=== PATIENT | female | born 1955 | race Caucasian/White ===

== ENCOUNTER → 2016-04-27 | Outpatient (CLI) | payer OTHER ==
[~2016-04-27] MED LIST: ACET-1256 PO; ASPI81TA25 PO; ATOR-22 PO; ATV1 PO; DOCU-94 PO; EYE DROP OP; FRS/40 PO; GLIM4TAB2 PO; HYDR-5688 PO; IPRA1AER2 INH; NEBULIZER; POLY1SOL6 OP; PRED20TA2 PO; PRLSR20 PO; [UNRECOGNIZED DRUG - REMARK]
[2016-04-27 09:41] LABS: ALB/GLOB RATIO 0.7 (0.9-2); ALKALINE PHOSPHATASE 85 U/L (45-117); ALT/SGPT 33 U/L (12-78); AST/SGOT 17 U/L (15-37); BLOOD UREA NITROGEN 17 mg/dl (7-18); BUN/CREATININE RATIO 20.9 (10-20); CALCIUM 9.1 mg/dl (8.5-10.1); CARBON DIOXIDE 40 mmol/L (21-32); CHLORIDE 96 mmol/L (98-107); CHOLESTEROL 140 mg/dl (0-200); GLUCOSE 169 mg/dl (70-99); HDL CHOLESTEROL 47 mg/dl; LDL CHOLESTEROL CALCULATED 65 mg/dl; POTASSIUM 4.3 mmol/L (3.5-5.1); SODIUM 143 mmol/L (136-145); TRIGLYCERIDES 138 mg/dl (0-150); VERY LOW DENSITY LIPOPROT CALC 28 mg/dl
[2016-04-27 09:46] LABS: ESTIMATED AVERAGE GLUCOSE 206 mg/dl; HA1C FLAG Normal (Normal)
== END ==
LOC: C.LABCC 08:12
PROVIDERS: ATTEND Internal Medicine
DX: E13.22 Other specified diabetes mellitus with diabetic chronic kidney disease (principal); E78.5 Hyperlipidemia, unspecified

== ENCOUNTER → 2016-07-23 | Outpatient (CLI) | payer OTHER ==
[2016-07-23 08:54] LABS: BLOOD UREA NITROGEN 14 mg/dl (7-18); BUN/CREATININE RATIO 22.7 (10-20); CALCIUM 8.5 mg/dl (8.5-10.1); CARBON DIOXIDE 44 mmol/L (21-32); CHLORIDE 97 mmol/L (98-107); CREATININE 0.63 mg/dl (0.60-1.20); GLUCOSE 83 mg/dl (70-99); POTASSIUM 4.1 mmol/L (3.5-5.1); SODIUM 143 mmol/L (136-145)
[2016-07-23 09:18] LABS: ESTIMATED AVERAGE GLUCOSE 169 mg/dl; HA1C FLAG Normal (Normal)
== END ==
LOC: C.LABCC 08:13
PROVIDERS: ATTEND Internal Medicine
DX: E13.22 Other specified diabetes mellitus with diabetic chronic kidney disease (principal); D63.1 Anemia in chronic kidney disease; N18.9 Chronic kidney disease, unspecified

== ENCOUNTER → 2016-08-19 | Outpatient (CLI) | payer OTHER ==
[2016-08-19 09:14] LABS: ALB/GLOB RATIO 0.7 (0.9-2); ALKALINE PHOSPHATASE 74 U/L (45-117); ALT/SGPT 19 U/L (12-78); AST/SGOT 12 U/L (15-37); BLOOD UREA NITROGEN 14 mg/dl (7-18); BUN/CREATININE RATIO 20.7 (10-20); CALCIUM 9.1 mg/dl (8.5-10.1); CARBON DIOXIDE 45 mmol/L (21-32); CHLORIDE 97 mmol/L (98-107); CREATININE 0.68 mg/dl (0.60-1.20); GLUCOSE 125 mg/dl (70-99); POTASSIUM 4.3 mmol/L (3.5-5.1); PREALBUMIN 19.6 mg/dl (20-40); SODIUM 142 mmol/L (136-145)
== END ==
LOC: C.LABCC 08:17
PROVIDERS: ATTEND Internal Medicine
DX: R60.0 Localized edema (principal)

== ENCOUNTER → 2016-08-25 | Outpatient (CLI) | payer OTHER ==
[2016-08-25 09:05] LABS: BLOOD UREA NITROGEN 21 mg/dl (7-18); BUN/CREATININE RATIO 25.6 (10-20); CHLORIDE 97 mmol/L (98-107); CREATININE 0.81 mg/dl (0.60-1.20); GLUCOSE 112 mg/dl (70-99); POTASSIUM 4.3 mmol/L (3.5-5.1); SODIUM 144 mmol/L (136-145)
[2016-08-25 09:27] LABS: CALCIUM 8.6 mg/dl (8.5-10.1); CARBON DIOXIDE 47 mmol/L (21-32)
== END ==
LOC: C.LABCC 07:59
PROVIDERS: ATTEND Internal Medicine
DX: R60.0 Localized edema (principal)

== ENCOUNTER → 2016-12-28 | Outpatient (CLI) | payer OTHER ==
[2016-12-28 09:15] LABS: BLOOD UREA NITROGEN 19 mg/dl (7-18); BUN/CREATININE RATIO 25.1 (10-20); CALCIUM 9.5 mg/dl (8.5-10.1); CARBON DIOXIDE 43 mmol/L (21-32); CHLORIDE 94 mmol/L (98-107); CREATININE 0.76 mg/dl (0.60-1.20); GLUCOSE 137 mg/dl (70-99); SODIUM 141 mmol/L (136-145)
== END | disposition home or self-care (01) ==
LOC: C.LABCC 08:40
PROVIDERS: ATTEND Internal Medicine
DX: R60.9 Edema, unspecified (principal)

== ENCOUNTER → 2017-01-04 | Outpatient (CLI) | payer OTHER ==
[2017-01-04 08:59] LABS: BLOOD UREA NITROGEN 15 mg/dl (7-18); BUN/CREATININE RATIO 22.3 (10-20); CARBON DIOXIDE 45 mmol/L (21-32); CHLORIDE 97 mmol/L (98-107); CREATININE 0.65 mg/dl (0.60-1.20); GLUCOSE 104 mg/dl (70-99); SODIUM 142 mmol/L (136-145)
== END ==
LOC: C.LABCC 08:19
PROVIDERS: ATTEND Internal Medicine
DX: R60.0 Localized edema (principal)

== ENCOUNTER → 2017-01-26 | Outpatient (CLI) | payer OTHER ==
[2017-01-26 08:06] LABS: BASO % 0.1 %; BASO ABS # 0.01 K/uL (0-0.2); COMPLETE YES; EOS % 2.7 %; HEMATOCRIT 35.4 % (37-47); IG% 0.4 %; LYMPH % 24.4 %; LYMPH ABS # 1.89 K/uL (1.2-3.4); MEAN CELL VOLUME 97.3 fL (80-100); MEAN CORPUSCULAR HEMOGLOBIN 28.3 pg (25-34); MEAN CORPUSCULAR HGB CONC 29.1 g/dl (32-36); MEAN PLATELET VOLUME 10.5 fL (7.4-10.4); MONO % 8.6 %; NEUT % 63.8 %; PLATELET COUNT 222 K/uL (130-400); RED BLOOD COUNT 3.64 M/uL (4.2-5.4); WHITE BLOOD COUNT 7.76 K/uL (4.8-10.8)
[2017-01-26 10:09] LABS: ESTIMATED AVERAGE GLUCOSE 160 mg/dl; HA1C FLAG Normal (Normal)
== END ==
LOC: C.LABCC 07:50
PROVIDERS: ATTEND Internal Medicine
DX: E11.9 Type 2 diabetes mellitus without complications (principal); D64.9 Anemia, unspecified

== ENCOUNTER → 2017-03-26 | Outpatient (CLI) | payer OTHER | LOC: C.LABCC 07:33 | PROVIDERS: ATTEND Internal Medicine | DX: E03.9 Hypothyroidism, unspecified (principal) ==

== ENCOUNTER → 2017-04-16 | Outpatient (CLI) | payer OTHER | LOC: C.LABCC 08:07 | PROVIDERS: ATTEND Internal Medicine | DX: R10.9 Unspecified abdominal pain (principal) ==

== ENCOUNTER → 2017-05-04 | Outpatient (CLI) | payer OTHER | LOC: C.LABCC 14:00 | PROVIDERS: ATTEND Internal Medicine | DX: R31.9 Hematuria, unspecified (principal) ==

== ENCOUNTER → 2017-05-05 | Outpatient (CLI) | payer OTHER ==
[2017-05-05 10:03] LABS: BASO % 0.1 %; BASO ABS # 0.01 K/uL (0-0.2); EOS % 2.1 %; EOS ABS # 0.18 K/uL (0-0.5); HEMATOCRIT 35.4 % (37-47); HEMOGLOBIN 10.4 g/dL (12.0-16.0); IG# 0.02 K/uL (0.00-0.02); LYMPH % 22.3 %; LYMPH ABS # 1.94 K/uL (1.2-3.4); MEAN CELL VOLUME 98.6 fL (80-100); MEAN CORPUSCULAR HGB CONC 29.4 g/dl (32-36); MEAN PLATELET VOLUME 10.4 fL (7.4-10.4); MONO % 7.2 %; MONO ABS # 0.63 K/uL (0.11-0.59); NEUT % 68.1 %; NEUT ABS # 5.93 K/uL (1.4-6.5); PLATELET COUNT 250 K/uL (130-400); RED CELL DISTRIBUTION WIDTH CV 12.5 % (11.5-14.5); WHITE BLOOD COUNT 8.71 K/uL (4.8-10.8)
[2017-05-05 10:09] LABS: BLOOD UREA NITROGEN 19 mg/dl (7-18); CALCIUM 9.3 mg/dl (8.5-10.1); CREATININE 0.71 mg/dl (0.60-1.20); GLUCOSE 112 mg/dl (70-99); POTASSIUM 3.7 mmol/L (3.5-5.1); SODIUM 140 mmol/L (136-145)
[2017-05-05 10:25] LABS: CARBON DIOXIDE 49 mmol/L (21-32)
== END ==
LOC: C.LABCC 08:51
PROVIDERS: ATTEND Internal Medicine
DX: R31.9 Hematuria, unspecified (principal); Z85.528 Personal history of other malignant neoplasm of kidney

== ENCOUNTER → 2017-05-29 | Outpatient (CLI) | payer OTHER ==
[~2017-05-29] MED LIST changes: +ATV/1 PO; +FNTTP100 TD; +INSDGIPEN SC; +IPRASOL4 INH; +LORA-741 PO; +OXYC-57 PO; +PANT40TA PO; +PLMINS NEB; +POLYSOL4 OPB; +RANI150T3 PO; +ROPI0.5T15 PO; +SALI0.657 NAE; +SIMV40TA2 PO; +TRAV0.00 OPB; +[UNRECOGNIZED DRUG - CODE] PO
== END | disposition home or self-care (01) ==
LOC: C.LABCC 11:50
PROVIDERS: ATTEND Internal Medicine
DX: R41.0 Disorientation, unspecified (principal); R35.0 Frequency of micturition; R39.15 Urgency of urination

== ENCOUNTER 2017-06-02 13:44 | Emergency (ER) | payer OTHER ==
[~2017-06-02] VITALS: Ht 160 cm; Wt 120.0 kg
[~2017-06-02 13:44] MED LIST changes: -ATV/1 PO; -FNTTP100 TD; -INSDGIPEN SC; -IPRASOL4 INH; -LORA-741 PO; -OXYC-57 PO; -PANT40TA PO; -PLMINS NEB; -POLYSOL4 OPB; -RANI150T3 PO; -ROPI0.5T15 PO; -SALI0.657 NAE; -SIMV40TA2 PO; -TRAV0.00 OPB; -[UNRECOGNIZED DRUG - CODE] PO
[2017-06-02 13:54] VITALS: TEMP 37.6; Ht 160 cm; Wt 120.0 kg
[2017-06-02] MEDS ORDERED: IPRA1AER2 INH (14:20)
[2017-06-02] MEDS ORDERED: PLMINS NEB (14:20)
[2017-06-02] MEDS ORDERED: ATV/1 PO (14:20)
[2017-06-02] MEDS ORDERED: LORA-741 PO (14:20)
[2017-06-02] MEDS ORDERED: IPRASOL4 INH (14:20)
[2017-06-02] MEDS ORDERED: RANI150T3 PO (14:20)
[2017-06-02] MEDS ORDERED: OXYC-57 PO (14:20)
[2017-06-02] MEDS ORDERED: PANT40TA PO (14:20)
[2017-06-02] MEDS ORDERED: ROPI0.5T15 PO (14:20)
[2017-06-02] MEDS ORDERED: FNTTP100 TD (14:20)
[2017-06-02] MEDS ORDERED: INSDGIPEN SC (14:20)
[2017-06-02] MEDS ORDERED: [UNRECOGNIZED DRUG - CODE] PO (14:20)
[2017-06-02] MEDS ORDERED: SIMV40TA2 PO (14:21)
[2017-06-02] MEDS ORDERED: SALI0.657 NAE (14:21)
[2017-06-02] MEDS ORDERED: TRAV0.00 OPB (14:21)
[2017-06-02] MEDS ORDERED: POLYSOL4 OPB (14:21)
[2017-06-02 15:24] LABS: BASO % 0.2 %; BASO ABS # 0.01 K/uL (0-0.2); EOS % 1.1 %; EOS ABS # 0.07 K/uL (0-0.5); HEMATOCRIT 36.9 % (37-47); HEMOGLOBIN 11.3 g/dL (12.0-16.0); IG# 0.01 K/uL (0.00-0.02); LYMPH % 17.9 %; LYMPH ABS # 1.19 K/uL (1.2-3.4); MEAN CELL VOLUME 95.3 fL (80-100); MEAN CORPUSCULAR HEMOGLOBIN 29.2 pg (25-34); MEAN CORPUSCULAR HGB CONC 30.6 g/dl (32-36); MEAN PLATELET VOLUME 9.9 fL (7.4-10.4); NEUT % 71.6 %; NEUT ABS # 4.77 K/uL (1.4-6.5); PLATELET COUNT 209 K/uL (130-400); RED CELL DISTRIBUTION WIDTH CV 12.4 % (11.5-14.5); RED CELL DISTRIBUTION WIDTH SD 42.7 fL (36.4-46.3); WHITE BLOOD COUNT 6.65 K/uL (4.8-10.8)
[2017-06-02 15:54] LABS: CALCIUM 9.2 mg/dl (8.5-10.1); CREATININE 0.87 mg/dl (0.60-1.20); POTASSIUM 3.5 mmol/L (3.5-5.1)
--- NOTE | 2017-06-02 16:20 | DIAGNOSTIC IMAGING REPORT ---
R HIP UNILATERAL 2 VIEWS CLINICAL HISTORY: same pain COMPARISON: None. DISCUSSION: The bones and joint spaces appear intact. There is no evidence of fracture, dislocation or bony disease. Moderate degenerative change. IMPRESSION: No acute process. Moderate degenerative change. The above report was generated using voice recognition software. It may contain grammatical, syntax or spelling errors. Electronically signed by: Jim Lovelace M.D. 06/02/2017 4:19 PM Dictated Date/Time: 06/02/2017 4:19 PM
--- NOTE | 2017-06-02 16:21 | DIAGNOSTIC IMAGING REPORT ---
L FEMUR 2 VIEWS ROUTINE CLINICAL HISTORY: same trauma COMPARISON: None. DISCUSSION: The bones and joint spaces appear intact. There is no evidence of fracture, dislocation or bony disease. There is no evidence for soft tissue swelling. IMPRESSION: Negative study. The above report was generated using voice recognition software. It may contain grammatical, syntax or spelling errors. Electronically signed by: Jim Lovelace M.D. 06/02/2017 4:19 PM Dictated Date/Time: 06/02/2017 4:19 PM
--- NOTE | 2017-06-02 16:22 | DIAGNOSTIC IMAGING REPORT ---
L TIBIA/FIBULA 2 VIEWS ROUTINE CLINICAL HISTORY: same trauma COMPARISON: None. DISCUSSION: Nondisplaced fracture proximal fibular shaft. No additional acute bony abnormalities are appreciated. There is no evidence for soft tissue swelling. IMPRESSION: Fracture proximal fibular shaft The above report was generated using voice recognition software. It may contain grammatical, syntax or spelling errors. Electronically signed by: Jim Lovelace M.D. 06/02/2017 4:20 PM Dictated Date/Time: 06/02/2017 4:20 PM
--- NOTE | 2017-06-02 16:24 | DIAGNOSTIC IMAGING REPORT ---
L FOOT MIN 3 VIEWS ROUTINE CLINICAL HISTORY: same trauma COMPARISON: None. DISCUSSION: Moderate generalized degenerative change. Moderate soft tissue edematous change. Small avulsion anterolateral calcaneus.. Small heel spur. IMPRESSION: 1. Small avulsion anterolateral calcaneus.. 2. Generalized soft tissue edema.. The above report was generated using voice recognition software. It may contain grammatical, syntax or spelling errors. Electronically signed by: Jim Lovelace M.D. 06/02/2017 4:22 PM Dictated Date/Time: 06/02/2017 4:20 PM
--- NOTE | 2017-06-02 16:25 | DIAGNOSTIC IMAGING REPORT ---
L ANKLE MIN 3 VIEWS ROUTINE CLINICAL HISTORY: same trauma COMPARISON: None. DISCUSSION: Moderate soft tissue edema. Small avulsion anterolateral calcaneus. Heel spur. Moderate soft tissue edema IMPRESSION: Small avulsion anterolateral calcaneus. Soft tissue edema. The above report was generated using voice recognition software. It may contain grammatical, syntax or spelling errors. Electronically signed by: Jim Lovelace M.D. 06/02/2017 4:24 PM Dictated Date/Time: 06/02/2017 4:23 PM
--- NOTE | 2017-06-02 16:26 | DIAGNOSTIC IMAGING REPORT ---
L HIP UNILATERAL 2 VIEWS CLINICAL HISTORY: fall; bilateral hip, leg and foot pain COMPARISON: CT of the abdomen and pelvis August 03, 2013. FINDINGS: Alignment of the left hip is in anatomic. No acute fracture is identified. There is mild osteoarthritis of the left hip. IMPRESSION: 1. No acute fracture or dislocation of the left hip. 2. Mild osteoarthritis of the left hip. Electronically signed by: Neo Cevallos M.D. 06/02/2017 4:24 PM Dictated Date/Time: 06/02/2017 4:24 PM
--- NOTE | 2017-06-02 16:27 | DIAGNOSTIC IMAGING REPORT ---
R TIBIA/FIBULA 2 VIEWS ROUTINE CLINICAL HISTORY: same trauma. Pain. COMPARISON: None. DISCUSSION: The bones and joint spaces appear intact. There is no evidence of fracture, dislocation or bony disease. There is no evidence for soft tissue swelling. IMPRESSION: Negative study. The above report was generated using voice recognition software. It may contain grammatical, syntax or spelling errors. Electronically signed by: Jim Lovelace M.D. 06/02/2017 4:26 PM Dictated Date/Time: 06/02/2017 4:25 PM
--- NOTE | 2017-06-02 16:27 | DIAGNOSTIC IMAGING REPORT ---
R ANKLE MIN 3 VIEWS ROUTINE CLINICAL HISTORY: Right ankle pain following fall. COMPARISON: None FINDINGS: Alignment of the right ankle is anatomic. There is no acute fracture. There is mild posterior and plantar calcaneal spurring. IMPRESSION: No acute fracture or dislocation of the right ankle. Electronically signed by: Neo Cevallos M.D. 06/02/2017 4:25 PM Dictated Date/Time: 06/02/2017 4:25 PM
--- NOTE | 2017-06-02 16:27 | DIAGNOSTIC IMAGING REPORT ---
R FOOT MIN 3 VIEWS ROUTINE CLINICAL HISTORY: same trauma. Pain. COMPARISON: None. DISCUSSION: Moderate generalized degenerative change. Mild soft tissue edema. No acute bony antibody. Small heel spur. IMPRESSION: Mild soft tissue edema. No acute bony abnormality. The above report was generated using voice recognition software. It may contain grammatical, syntax or spelling errors. Electronically signed by: Jim Lovelace M.D. 06/02/2017 4:25 PM Dictated Date/Time: 06/02/2017 4:24 PM
--- NOTE | 2017-06-02 16:28 | DIAGNOSTIC IMAGING REPORT ---
R FEMUR 2 VIEWS ROUTINE CLINICAL HISTORY: Right femur pain following fall. COMPARISON: None FINDINGS: No acute fracture of the right femur is identified. Alignment of the right hip and right knee is anatomic. There is no evidence for right knee joint effusion. There is mild osteoarthritis of the right hip and mild to moderate osteoarthritis within the medial compartment of the right knee. IMPRESSION: No acute fracture of the right femur. Electronically signed by: Neo Cevallos M.D. 06/02/2017 4:26 PM Dictated Date/Time: 06/02/2017 4:26 PM
[2017-06-02 17:30] VITALS: BP 121/69; PULSE 82; O2SAT 97
[2017-06-02] MEDS ORDERED: ACETAMINOPHEN 500 MG TAB PO ONE (18:17)
--- NOTE | 2017-06-03 13:12 | EMERGENCY ROOM VISIT NOTE ---
ED Visit Note First contact with patient: 13:59 Chief Complaint: Fall. Right and left foot pain. History of Present Illness: Ms. Allan is a 61-year-old white female who is brought into the ED via ambulance for bilateral foot pain following a fall. Patient and daughter report on Wednesday 3 days ago she was in her room at [facility] asleep on a chair. The daughter reports she walked into the room and woke her mother from sleep. She reports her mother was talking to her and then reported she needed to go to the bathroom. Patient then stood up and acquired her walker and as she was starting to head to the bathroom she reports she fell forward. She reports prior to the fall she did not have a loss of consciousness, at the time of the fall she did not strike her head; the fall was observed by her daughter and she agreed with this statement, and since the fall she denies any neurological symptoms. She does admit that she has a history of chronic bifrontal headaches which have been slightly more frequent but not more intense and has resolved with acetaminophen. Currently she is complaining of bilateral feet pain and left lower leg pain. The left lower leg pain is located over the proximal fibula and her bilateral feet pain are within the second through fourth toes. She does not describe her pain. She rates her discomfort 4/10. Her pain is nonradiating. Her pain worsens with palpation. She has not identified any alleviating factors related to the pain. She has been using Tylenol and Percocet for her pain without relief of her discomfort. She currently denies headache, dizziness, lightheadedness, visual changes, hearing changes, difficulty speaking, difficulty swallowing, difficulty coordinating body movements, chest pain, shortness of breath, abdominal pain, nausea/vomiting, extremity weakness/numbness/tingling. Review of Systems: As noted above in history of present illness. All body systems were reviewed and found to be negative as noted above. Past Medical History: (1) Calculus Of Ureter (2) Chronic Kidney Disease, Stage Iii (Moderate) (3) COPD (chronic obstructive pulmonary disease) (4) Diabetes mellitus, type II (5) Malig Neopl Kidney (6) Malignant Ac Liver Nos (7) Phlegmon (8) Renal & Ureteral Dis Nos (9) Sleep apnea Surgical Problems: (1) History of cholecystectomy (2) History of hysterectomy Current Medications: Medications Dose Route/Sig Max Daily Dose Days Date Category Travatan Z (Travoprost) 0.004 % Ad 1 Drops OPB HS 06/02/17 Reported Systane (Polyethylene Glycol-Propylene) 1 Megan Megan 1 Drops OPB BID 06/02/17 Reported Zocor (Simvastatin) 40 Mg Tab 40 Mg PO HS 06/02/17 Reported [place] (Saline) 0.65 % Spr 2 [place] CARLI TID 06/02/17 Reported Robafen Dm (Dextromethorphan-Guaifenesin) 1 Syp Syp 10 Ml PO Q6 PRN 06/02/17 Reported Requip (Ropinirole HCl) 0.5 Mg Tab 0.5 Mg PO HS 06/02/17 Reported Zantac (Ranitidine HCl) 150 Mg Tab 150 Mg PO QPM 06/02/17 Reported Protonix (Pantoprazole Sodium) 40 Mg Tab 40 Mg PO DAILY 06/02/17 Reported Percocet 5MG/325MG (Oxycodone/Acetaminophen) Tab 2 Tablet PO Q6H PRN 06/02/17 Reported Ativan (Lorazepam) 1 Mg Tab 1.5 Mg PO HS 06/02/17 Reported Ativan (Lorazepam) 0.5 Mg Tab 0.5 Mg PO QAM 06/02/17 Reported Lantus Solostar (Insulin Glargine) 100 Unit/Ml Inj 15 Units SC QPM 06/02/17 Reported Duoneb (Ipratropium-Albuterol) 3 Ml Nebu 1 Treatment INH Q4H 06/02/17 Reported Fentanyl 100 Mcg Tdsy 100 Mcg TD [id number] 06/02/17 Reported Combivent Respimat (Ipratropium-Albuterol) 1 Aer Aer 1 Puffs INH QID 06/02/17 Reported Budesonide 0.5 Mg/2 Ml Nebu 1 Vial NEB QAM 06/02/17 Reported Aspir-Low (Aspirin) 81 Mg Tab 81 Mg PO QAM 03/06/16 Reported Lasix (Furosemide) 40 Mg Tab 120 Mg PO DAILY 08/03/13 Reported Glimepiride 4 Mg Tab 4 Mg PO BID 08/03/13 Reported Colace (Docusate Sodium) 100 Mg Cap 200 Mg PO QAM 08/03/13 Reported Tylenol (Acetaminophen) 500 Mg Tab 1,000 Mg PO Q8 PRN 09/26/08 Reported Allergies to Medications: Latex. Social History: Patient is currently disabled; she feels safe in her home environment; she denies tobacco and alcohol use. Physical Examination: Vital Signs: Date Time Temp Pulse Resp B/P (MAP) Pulse Ox O2 Delivery O2 Flow Rate FiO2 06/02/17 17:30 82 18 121/69 97 Nasal Cannula 06/02/17 15:46 82 18 118/77 99 Nasal Cannula 4.0 06/02/17 13:54 37.6 90 20 119/63 100 Nasal Cannula 4.0 GENERAL: 61-year-old female in mild distress due to pain, nontoxic-appearing, afebrile and hemodynamically stable. NEUROLOGICAL: Awake, alert and oriented to person, place and time. Answering questions appropriately and following commands. Good hand eye coordination. No focal motor or sensory deficits. Cranial nerves II through XII grossly intact. Good short-term and long-term recall. Normal rapid alternating movements of the hands. Able to spell backwards. SKIN: Warm, dry and pink. HEENT: Atraumatic and normocephalic. No raccoons eyes or guzman signs. No drainage from the ears of the nostril; no hemotympanum. PERRLA. EOMI without nystagmus. Sclera white and conjunctiva pink. No malocclusion. No intraoral trauma. Airway patent. Speech is normal and clear. Trachea midline. No jugular venous distention. BACK: No tenderness over the bony cervical, thoracic and lumbar spine. Full range of motion of the cervical spine. No CVA tenderness. THORAX: Lungs sounds are clear to auscultation and decreased bilaterally with equal bilaterally with symmetrical chest wall. Scattered wheezing was noted. No crepitus, tenderness, subcutaneous air or deformities noted. No increased respiratory effort or rate. ABDOMEN: Obese, soft and nontender. Positive bowel sounds in all quadrants. No guarding, rigidity or organomegaly. LOWER EXTREMITIES: No gross bony deformity. No shortening or malrotation. Although patient initially complained of left lower leg pain she was tender throughout the lateral aspect of both legs starting from her hips all the way down and including the ankles. I did not appreciate any bony deformity or crepitus through these areas. The most severe areas of tenderness were the left lateral lower leg and the bilateral toes where there is swelling and ecchymosis over the second through fourth toes over the superior aspect of the foot. All distal neurovascular statuses are intact and equal bilaterally. Mild dependent edema bilaterally. ED Course: Patient is assessed as noted above. Patient's medication list was reviewed. Patient was offered pain medication and initially refused but then accepted 1 g of Tylenol by mouth. Left Hip X-Rays: Were read by myself and the radiologist showing no acute fractures or dislocations. Mild degenerative changes were noted. Right Hip X-Rays: Were read by myself and the radiologist showing no acute fractures or dislocations. Moderate degenerative changes were noted. Left Femur X-Rays: Were read by myself and the radiologist showing no acute fractures. Right Femur X-Rays: Were read by myself and the radiologist showing no acute fractures. No evidence of knee effusion. Moderate arthritis was once again noted in both the hip and the medial compartment of the right knee. Left Tibia/Fibula X-Rays: Were read by myself and the radiologist showing a nondisplaced fracture of the proximal fibular shaft. Right Tibia/Fibula X-Rays: Were read by myself and the radiologist and shows no acute fractures. Left Ankle X-Rays: Were read by myself and the radiologist showing a small avulsion fracture over the anterior lateral calcaneus with soft tissue edema. Right Ankle X-Rays: Were read by myself and the radiologist showing no acute fractures or dislocations. Left Foot X-Rays: Were read by myself and the radiologist showing moderate generalized degenerative changes, small avulsion of the calcaneus and soft tissue edema. Right Foot X-Rays: Were read by myself and the radiologist showing no acute fractures but moderate generalized degenerative changes and mild soft tissue edema. Patient's fibula fracture was placed in a long lower leg splint involving both the knee and the ankle. Patient was reassessed multiple times during her stay in the emergency department. Patient's case was reviewed with Dr. Lord; we agreed on diagnostic approach , treatment, disposition and plan. Patient and daughter were educated about today's findings and instructed on her treatment plan; they verbalized understanding and agreement with this plan. Clinical Impression: Fall. Left fibula fracture. Left calcaneus avulsion fracture. Disposition: Patient discharged home in [facility]; prior to departure she was reassessed and subjectively reported she was feeling the same and rated her discomfort 4/10. Plan: It was encouraged that the patient continue her current medications. It was encouraged that the patient elevate her feet while at rest and use ice for pain and swelling. It was encouraged that the patient follow-up with cardiovascular disease specialist for definitive care and treatment. Was encouraged that the patient be brought back to the ED for uncontrolled pain or any new/concerning symptoms.
== END 2017-06-02 18:30 ==
LOC: EDBD 13:44 → C.EDC 13:45
DX: S82.402A Unspecified fracture of shaft of left fibula, initial encounter for closed fracture (principal); S92.002A Unspecified fracture of left calcaneus, initial encounter for closed fracture; W18.30XA Fall on same level, unspecified, initial encounter; Y92.193 Bedroom in other specified residential institution as the place of occurrence of the external cause; M19.071 Primary osteoarthritis, right ankle and foot; M17.11 Unilateral primary osteoarthritis, right knee; M16.0 Bilateral primary osteoarthritis of hip; N18.3 Chronic kidney disease, stage 3 (moderate); E11.22 Type 2 diabetes mellitus with diabetic chronic kidney disease; Z85.528 Personal history of other malignant neoplasm of kidney; Z85.05 Personal history of malignant neoplasm of liver; Z90.49 Acquired absence of other specified parts of digestive tract; Z91.040 Latex allergy status

== ENCOUNTER 2017-06-05 07:48 | Inpatient (IN) | payer OTHER ==
[~2017-06-05] VITALS: Ht 167.6 cm; Wt 121.0 kg
[~2017-06-05 07:48] MED LIST changes: -ATOR-22 PO; +ATV/1 PO; -ATV1 PO; -EYE DROP OP; +FNTTP100 TD; -HYDR-5688 PO; +INSDGIPEN SC; +IPRASOL4 INH; +LORA-741 PO; -NEBULIZER; +OXYC-57 PO; +PANT40TA PO; +PLMINS NEB; -POLY1SOL6 OP; +POLYSOL4 OPB; -PRED20TA2 PO; -PRLSR20 PO; +RANI150T3 PO; +ROPI0.5T15 PO; +SALI0.657 NAE; +SIMV40TA2 PO; +TRAV0.00 OPB; +[UNRECOGNIZED DRUG - CODE] PO; -[UNRECOGNIZED DRUG - REMARK]
[2017-06-05 07:50] VITALS: TEMP 34; Ht 167.6 cm; Wt 121.0 kg
--- NOTE | 2017-06-05 07:56 | EMERGENCY ROOM VISIT NOTE ---
History Report prepared by Heraclio: Herb Marques Under the Supervision of: Dr. Rupesh Vicente M.D. First contact with patient: 07:44 Stated Complaint: UNRESPONSIVE History of Present Illness The patient is a 61 year old female with a history of COPD and kidney disease who presents to the Emergency Room via EMS from [facility] with persistent unresponsiveness that started prior to arrival this morning. Per EMS, the patient is altered, and was noted to be hypothermic. The patient was given Narcan, and after that was administered, the patient started to open her eyes. Per EMS, the patient has a Fentanyl patch, and per the patient's daughters, the patient takes Percocet. Her blood sugars are currently 367. Per the patient's daughters, the patient fell recently and has a broken left fibula. The patient did not hit her head on the fall. The patient has had a cough, and is taking cough syrup. She was seen yesterday and was noted to be improving and in "happy spirits". Per the patient's daughters, the patient most likely has cancer in her bladder, but cannot have surgery. She is DNR. The patient wears oxygen all the time. History limited secondary to patient's unresponsiveness. Source of History: family, EMS History Limited By: other (unresponsiveness) Onset: Prior to arrival this morning Position: other (global) Symptom Intensity: opened eyes after Narcan Quality: other (unresponsiveness) Timing: other (persistent) Associated Symptoms: + cough Note: Associated symptoms: Hypothermic. Review of Systems ROS limited secondary to patient's unresponsiveness. Past Medical & Surgical Medical Problems: (1) Calculus Of Ureter (2) Chronic Kidney Disease, Stage Iii (Moderate) (3) COPD (chronic obstructive pulmonary disease) (4) Diabetes mellitus, type II (5) Malig Neopl Kidney (6) Malignant Ac Liver Nos (7) Phlegmon (8) Renal & Ureteral Dis Nos (9) Sleep apnea Surgical Problems: (1) History of cholecystectomy (2) History of hysterectomy Old medical records were reviewed. Nurse's notes were reviewed and I agree with. Family History Diabetes mellitus Heart disease Social History Marital Status: single Housing Status: [facility] Occupation Status: unemployed Current/Historical Medications Scheduled Aspirin (Aspir-Low), 81 MG PO QAM Budesonide (Budesonide), 1 VIAL NEB QAM Docusate Sodium (Colace), 200 MG PO QAM Fentanyl (Fentanyl), 100 MCG TD [id number] Furosemide (Lasix), 120 MG PO DAILY Glimepiride (Glimepiride), 4 MG PO BID Insulin Glargine (Lantus Solostar), 15 UNITS SC QPM Ipratropium-Albuterol (Combivent Respimat), 1 PUFFS INH QID Ipratropium-Albuterol (Duoneb), 1 TREATMENT INH Q4H Lorazepam (Ativan), 0.5 MG PO QAM Lorazepam (Ativan), 1.5 MG PO HS Pantoprazole (Protonix), 40 MG PO DAILY Polyethylene Glycol-Propylene (Systane), 1 DROPS OPB BID Ranitidine Hcl (Zantac), 150 MG PO QPM Ropinirole (Requip), 0.5 MG PO HS Saline (Griffin), 2 SPRY CARLI TID Simvastatin (Zocor), 40 MG PO HS Travoprost (Travatan Z), 1 DROPS OPB HS Scheduled PRN Acetaminophen (Tylenol), 1,000 MG PO Q8 PRN for Mild Pain Dextromethorphan-Guaifenesin (Robafen Dm), 10 ML PO Q6 PRN for Cough Oxycodone/Acetaminophen 5MG/325MG (Percocet 5MG/325MG), 2 TABLET PO Q6H PRN for Severe Pain Allergies Coded Allergies: Camphor (Verified Allergy, Mild, RASH, 04/12/09) Eucalyptus Oil (Verified Allergy, Mild, RASH, 04/12/09) Latex1 -Allergic Contact Dermititis (Verified Allergy, Mild, RASH, 08/04/13 ) Menthol (Verified Allergy, Mild, RASH, 10) Adhesives (Verified Allergy, Unknown, CONTACT DERMATITIS, 03/06/16) Uncoded Allergies: VICKS (Allergy, Unknown, RASH, 03/06/16) Physical Exam Vital Signs Date Time Temp Pulse Resp B/P (MAP) Pulse Ox O2 Delivery O2 Flow Rate FiO2 06/05/17 09:33 100 18 77/59 90 Nasal Cannula 3.0 06/05/17 09:08 106 20 98/54 93 Nasal Cannula 3.0 06/05/17 08:53 114 23 87/37 97 Nasal Cannula 4.0 3/31/18 08:40 110 20 115/76 97 Nasal Cannula 4.0 06/05/17 08:35 117 26 69/45 99 Nasal Cannula 4.0 06/05/17 08:11 102 26 115/47 97 Nasal Cannula 4.0 06/05/17 08:00 93 06/05/17 07:50 34.0 104 20 111/80 96 Nasal Cannula 4.0 Physical Exam General: Chronically ill-appearing, obese, older female. Sleepy. To painful stimuli, opens eyes and moves but falls back asleep. HEENT: Normal cephalic atraumatic. Pupils are equal round and reactive to light. Extraocular movements are intact. Oropharynx is pink with moist mucous membranes. No swelling of the mouth lips or tongue. Neck: Supple with a midline trachea. No meningeal signs or stiffness, no JVD or bruits. No Stridor. Chest: Clear to auscultation bilaterally. No wheezes or rhonchi. No increased work of breathing. Heart: regular rate and rhythm. Abdomen: Soft nontender, nondistended without rebound guarding or rigidity. Extremities: No cyanosis clubbing or edema. No calf tenderness or assymetry Spine/Back. Non tender to palpation. No CVA tenderness Skin: Good turgor without rashes. Neurologic exam: Sleepy. To painful stimuli opens eyes and moves but falls back asleep. Medical Decision & Procedures ER Provider Diagnostic Interpretation: Radiology results as stated below per my review and radiologist interpretation: SINGLE VIEW CHEST CLINICAL HISTORY: Atypical chest pain. FINDINGS: An AP, portable, upright chest radiograph is compared to chest x-ray and chest CT dated 08/03/2013. The examination is significantly degraded by portable technique and patient rotation. The heart is enlarged. The pulmonary vasculature is noncongested. There is elevation of right hemidiaphragm with bibasilar atelectasis no airspace consolidation or large pleural effusion is identified. Linear atelectasis versus scarring is seen in the right midlung. No pneumothorax is seen. The skeletal structures are osteopenic. The bony thorax is grossly intact. IMPRESSION: 1. Cardiomegaly and chronic changes as above. There is no acute cardiopulmonary abnormality identified. 2. The examination is significantly compromised by patient rotation. Follow-up with a dedicated PA and lateral examination is recommended when the patient is clinically able. Electronically signed by: Oren Kwan M.D. 06/05/2017 8:27 AM Dictated Date/Time: 06/05/2017 8:25 AM Laboratory Results 06/05/17 08:16 Red Blood Count 3.84, Mean Corpuscular Volume 102.1, Mean Corpuscular Hemoglobin 29.9, Mean Corpuscular Hemoglobin Concent 29.3, Mean Platelet Volume 10.2, Neutrophils (%) (Auto) 82.0, Lymphocytes (%) (Auto) 9.9, Monocytes (%) ( Auto) 7.3, Eosinophils (%) (Auto) 0.1, Basophils (%) (Auto) 0.1, Neutrophils # ( Auto) 7.76, Lymphocytes # (Auto) 0.94, Monocytes # (Auto) 0.69, Eosinophils # ( Auto) 0.01, Basophils # (Auto) 0.01 06/05/17 08:16 Test 06/05/17 08:05 06/05/17 08:15 06/05/17 08:16 06/05/17 08:17 Urine Color DK YELLOW Urine Appearance TURBID (CLEAR) Urine pH 5.0 (4.5-7.5) Urine Specific [place] 1.024 (1.000-1.030) Urine Protein 2+ (NEG) Urine Glucose (UA) NEG (NEG) Urine Ketones NEG (NEG) Urine Occult Blood 1+ (NEG) Urine Nitrite NEG (NEG) Urine Bilirubin NEG (NEG) Urine Urobilinogen NEG (NEG) Urine Leukocyte Esterase TRACE (NEG) Urine WBC (Auto) >30 /hpf (0-5) Urine RBC (Auto) 5-10 /hpf (0-4) Urine Hyaline Casts (Auto) 0 /lpf (0-5) Urine Epithelial Cells (Auto) >30 /lpf (0-5) Urine Bacteria (Auto) 3+ (NEG) Urine Pathogenic Casts 0-3 GRANULAR CASTS /lpf (0) Urine Opiates Screen POS (NEG) Urine Methadone, Qualitative NEG (NEG) Urine Barbiturates NEG (NEG) Urine Phencyclidine (PCP) Level NEG (NEG) Ur Amphetamine/Methamphetamine NEG (NEG) MDMA (Ecstasy) Screen NEG (NEG) Urine Benzodiazepines Screen NEG (NEG) Urine Cocaine Metabolite NEG (NEG) Urine Marijuana (THC) NEG (NEG) Venous Blood pH 7.00 (7.36-7.41) Venous Blood Partial Pressure CO2 195 mmHg (38.0-50.0) Venous Blood Partial Pressure O2 47 mmHg Venous Blood HCO3 47 mmol/L Venous Blood Oxygen Saturation 73.7 % Venous Blood Base Excess 9.9 mEq/L White Blood Count 9.47 K/uL (4.8-10.8) Red Blood Count 3.84 M/uL (4.2-5.4) Hemoglobin 11.5 g/dL (12.0-16.0) Hematocrit 39.2 % (37-47) Mean Corpuscular Volume 102.1 fL (80-100) Mean Corpuscular Hemoglobin 29.9 pg (25-34) Mean Corpuscular Hemoglobin Concent 29.3 g/dl (32-36) Platelet Count 211 K/uL (130-400) Mean Platelet Volume 10.2 fL (7.4-10.4) Neutrophils (%) (Auto) 82.0 % Lymphocytes (%) (Auto) 9.9 % Monocytes (%) (Auto) 7.3 % Eosinophils (%) (Auto) 0.1 % Basophils (%) (Auto) 0.1 % Neutrophils # (Auto) 7.76 K/uL (1.4-6.5) Lymphocytes # (Auto) 0.94 K/uL (1.2-3.4) Monocytes # (Auto) 0.69 K/uL (0.11-0.59) Eosinophils # (Auto) 0.01 K/uL (0-0.5) Basophils # (Auto) 0.01 K/uL (0-0.2) RDW Standard Deviation 46.6 fL (36.4-46.3) RDW Coefficient of Variation 12.6 % (11.5-14.5) Immature Granulocyte % (Auto) 0.6 % Immature Granulocyte # (Auto) 0.06 K/uL (0.00-0.02) Prothrombin Time 10.0 SECONDS (9.0-12.0) Prothromb Time International Ratio 1.0 (0.9-1.1) Activated Partial Thromboplast Time 28.9 SECONDS (21.0-31.0) Partial Thromboplastin Ratio 1.1 Anion Gap -1.5 mmol/L (3-11) Est Creatinine Clear Calc Drug Dose 55.3 ml/min Estimated GFR () 47.0 Estimated GFR (Non- 40.6 BUN/Creatinine Ratio 18.9 (10-20) Calcium Level 9.0 mg/dl (8.5-10.1) Total Bilirubin 0.2 mg/dl (0.2-1) Direct Bilirubin < 0.1 mg/dl (0-0.2) Aspartate Amino Transf (AST/SGOT) 31 U/L (15-37) Alanine Aminotransferase (ALT/SGPT) 28 U/L (12-78) Alkaline Phosphatase 91 U/L (45-117) Total Creatine Kinase 49 U/L (26-192) Creatine Kinase MB 3.7 ng/ml (0.5-3.6) Creatine Kinase MB Ratio 7.6 (0-3.0) Total Protein 8.3 gm/dl (6.4-8.2) Albumin 3.1 gm/dl (3.4-5.0) Lipase 110 U/L (73-393) Beta-Hydroxybutyric Acid 2.23 mg/dL (0.2-2.81) Salicylates Level < 1.7 mg/dl (2.8-20) Acetaminophen Level < 2 ug/ml (10-30) Bedside Lactic Acid Venous 0.76 mmol/L (0.90-1.70) Laboratory studies as stated above per my review. Medications Administered Medications (Trade) Dose Ordered Sig/Ramin Route Start Time Stop Time Status Last Admin Dose Admin Sodium Chloride 1,000 ml @ 999 mls/hr Q1H1M STAT IV 06/05/17 07:58 06/05/17 08:58 DC 06/05/17 07:58 999 MLS/HR Piperacillin Sod/ Tazobactam Sod (Zosyn Iv) 4.5 gm NOW STAT IV 06/05/17 07:58 06/05/17 08:00 DC 06/05/17 08:20 4.5 GM Morphine Sulfate (MoRPHine SULFATE INJ) 2 mg NOW STAT IV 06/05/17 09:08 06/05/17 09:09 DC 06/05/17 09:14 2 MG ECG Per My Interpretation Indication: altered mental status Rate (beats per minute): 112 Rhythm: atrial fibrillation Findings: PVC (occasional), no acute ischemic change, other Comparison ECG Date: compared to March 28 2018, atrial fibrillation is now present ED Course 0748: Past medical records reviewed. The patient was evaluated in room A1, and a limited history and physical examination were performed. 0758: Zosyn IV 4.5 gm, NSS 1000 ml @ 200 mls/hr IV, NSS 1000 ml @ 999 mls/hr IV. 0814: I reevaluated the patient and she is responding a bit more. Her blood pressure is 110 systolic. We got 2 IV's. I talked to the family. 0830: I reevaluated the patient and she wakes up to stimuli. 0842: I reevaluated the patient and her blood pressure dropped to the 60s, but I rechecked it and she is now in the 110s. Her CO2 is really high. I called respiratory. 0851: Upon reevaluation, the patient is resting. Dr. Addison of intensive medicine talked to the family and they are more interested in comfort measures. I discussed the results and treatment plan with the patient's family. They verbalized agreement of the treatment plan. The patient will be evaluated for further management. 0854: Discussed the patient's case with Dr. Bishop [facility] hospitalist. He will talk to Dr. Addison. The patient will be evaluated for further management. 0906: I confirmed with family that the patient is comfort care. 0908: I reevaluated the patient and Dr. Addison is back in the room, and the patient will be made palliative care. 1012: I reevaluated the patient and she appears very comfortable. Family is at bedside. Medical Decision Differentials include, but are not limited to; infection, sepsis, intracranial process, pneumonia, UTI, arrhythmia, medication side effect, overdose. This patient comes in as described above. She was brought in from [facility].she's had altered mental status. She was found hypothermic. Her initial blood pressure was in the 90s.. IV access was established en route and she was given Narcan 0.2 mg IV and woke up a little bit. At present she opens her eyes to stimuli. She appears in no distress. EKG shows what appears to be A. fib. Chest x-ray may have some congestive changes. Multiple blood testing was obtained including blood cultures I initially ordered IV Zosyn for possible infection. I also ordered CAT scan of her head due to altered mental status and a VBG. I talked to the family at length and they do confirm that she is a DO NOT RESUSCITATE as she's had severe COPD as well as cancer. Initial lactic acid was not elevated. EKG shows what appears to be A. fib. Her urinalysis did look concentrated spell fell and concerns for possible UTI. Blood sugar was not significantly high or low. He was hypothermic and a Sadiq hugger was placed. I did a VBG and the CO2 is very high at 197. I did order BiPAP. She also had an episode where her blood pressure dropped to 60 systolic. With this occurrence, I did consulted Dr. Addison, the education rn who happened to be in the emergency department. He came in and talked to the patient's family. Given her severe COPD and her history of malignancy they have decided to have her comfort care/hospice they do not feel she would tolerate the BiPAP and she is a DO NOT RESUSCITATE. She has been given morphine for pain and appears very comfortable. She will be admitted to the hospitalist Comfort Care. Family is in agreement with this plan and she was admitted. Medication Reconcilliation Current Medication List: was personally reviewed by me Blood Pressure Screening Patient's blood pressure: Normal blood pressure Consults Time Called: 0850 Consulting Physician: Dr. Edna MARCUS hospitalist Returned Call: [phone] Discussed the patient's case with Dr. Edna MARCUS hospitalist. He will talk to Dr. Addison. The patient will be evaluated for further management. Impression Primary Impression: Altered mental status Additional Impression: Hypercapnic respiratory failure Critical Care I have personally spent greater than 45 minutes of critical care time in the direct management of this patient. This includes bedside care, interpretation of diagnostic studies, and testing, discussion with consultants, patient, and family members, and other required patient management activities. This 45 minutes is in excess of all separately billable procedures. Scribe Attestation The scribe's documentation has been prepared under my direction and personally reviewed by me in its entirety. I confirm that the note above accurately reflects all work, treatment, procedures, and medical decision making performed by me. Departure Information Dispostion Being Evaluated By Hospitalist Problem Qualifiers
[2017-06-05] MEDS ORDERED: SODIUM CHLORIDE 0.9% 1000ML 1,000 ML IV ONE (07:58)
[2017-06-05] MEDS ORDERED: PIPERACILLIN/TAZOBACTAM 4.5 GM/100ML D5W IV STA (07:58)
[2017-06-05] MEDS ORDERED: SODIUM CHLORIDE 0.9% 1000ML 1,000 ML IV STA (07:58)
--- NOTE | 2017-06-05 08:28 | DIAGNOSTIC IMAGING REPORT ---
SINGLE VIEW CHEST CLINICAL HISTORY: Atypical chest pain. FINDINGS: An AP, portable, upright chest radiograph is compared to chest x-ray and chest CT dated 08/03/2013. The examination is significantly degraded by portable technique and patient rotation. The heart is enlarged. The pulmonary vasculature is noncongested. There is elevation of right hemidiaphragm with bibasilar atelectasis no airspace consolidation or large pleural effusion is identified. Linear atelectasis versus scarring is seen in the right midlung. No pneumothorax is seen. The skeletal structures are osteopenic. The bony thorax is grossly intact. IMPRESSION: 1. Cardiomegaly and chronic changes as above. There is no acute cardiopulmonary abnormality identified. 2. The examination is significantly compromised by patient rotation. Follow-up with a dedicated PA and lateral examination is recommended when the patient is clinically able. Electronically signed by: Oren Kwan M.D. 06/05/2017 8:27 AM Dictated Date/Time: 06/05/2017 8:25 AM
[2017-06-05 08:39] LABS: PTT PATIENT 28.9 SECONDS (21.0-31.0)
[2017-06-05 08:51] LABS: BASO % 0.1 %; BASO ABS # 0.01 K/uL (0-0.2); EOS % 0.1 %; EOS ABS # 0.01 K/uL (0-0.5); HEMATOCRIT 39.2 % (37-47); HEMOGLOBIN 11.5 g/dL (12.0-16.0); IG# 0.06 K/uL (0.00-0.02); LYMPH % 9.9 %; LYMPH ABS # 0.94 K/uL (1.2-3.4); MEAN CELL VOLUME 102.1 fL (80-100); MEAN CORPUSCULAR HEMOGLOBIN 29.9 pg (25-34); MEAN CORPUSCULAR HGB CONC 29.3 g/dl (32-36); MEAN PLATELET VOLUME 10.2 fL (7.4-10.4); MONO % 7.3 %; MONO ABS # 0.69 K/uL (0.11-0.59); NEUT ABS # 7.76 K/uL (1.4-6.5); PLATELET COUNT 211 K/uL (130-400); RED CELL DISTRIBUTION WIDTH CV 12.6 % (11.5-14.5); RED CELL DISTRIBUTION WIDTH SD 46.6 fL (36.4-46.3); WHITE BLOOD COUNT 9.47 K/uL (4.8-10.8)
[2017-06-05 09:03] LABS: CARBON DIOXIDE 49 mmol/L (21-32)
[2017-06-05 09:04] LABS: ALBUMIN 3.1 gm/dl (3.4-5.0); ALKALINE PHOSPHATASE 91 U/L (45-117); ALT/SGPT 28 U/L (12-78); AST/SGOT 31 U/L (15-37); BLOOD UREA NITROGEN 26 mg/dl (7-18); CREATININE 1.38 mg/dl (0.60-1.20); GLUCOSE 344 mg/dl (70-99); LIPASE 110 U/L (73-393); POTASSIUM 4.6 mmol/L (3.5-5.1); SODIUM 133 mmol/L (136-145); TOTAL PROTEIN 8.3 gm/dl (6.4-8.2)
[2017-06-05 09:05] LABS: CKMB 3.7 ng/ml (0.5-3.6)
[2017-06-05] MEDS ORDERED: MoRPHine SULFATE 2 MG/ML CARP IV STA (09:08)
--- NOTE | 2017-06-05 09:31 | Critical Care Consultation ---
Critical Care Consultation Date of Consultation: Jun 05, 2017. Attending Physician: Rupesh Vicente MD Reason for Consultation: Acute hypercarbic respiratory failure History of Present Illness Patient is a 61-year-old Personal halfway for altered mental statusfemale who appears older than her stated age who presents from [facility]. Per EMS patient is altered and noted to be hypothermic, she was given 0.1 mg of Narcan and started to have increased level of consciousness. Patient was transferred for further evaluation and management. I have been asked to see the patient for hypercarbic respiratory failure. It is noted that the patient is DNR/DNI in event of cardiac arrest and has metastatic cancer. An extensive discussion with the patient's family at the bedside, patient has altered mental status not engaging in conversation regarding goals of care. Patient's family is composed of 2 daughters who are primary decision makers. Both are in agreement that the patient has severe end-stage COPD and under no circumstances would want intubation. They also recognize that the patient has metastatic carcinoma and would not heroic measures undertaken in event of cardiac arrest. They both state that the patient has been experiencing a lot of pain for several days to several weeks. I explained that in the process of medicating for the pain we may make the COPD worse and ultimately patient's the patient's via the doctor in a double effect. They understand that this is going on and the patient is likely entered the active dying process. We discussed noninvasive mechanical ventilation and they both agree that they feel that this is not what the patient would want to undergo. They have not been engaged with hospice at this time and have not been informed or had their expectations addressed regarding the process of . At this point we will not actively manage medical problems including urinary tract infection, we will focus on the patient's comfort and administer pain medications, with regards to the complaint of shortness of breath I have started a box fan and the patient feels much more comfortable. Past Medical/Surgical History (1) Calculus Of Ureter (2) Chronic Kidney Disease, Stage Iii (Moderate) (3) COPD (chronic obstructive pulmonary disease) (4) Diabetes mellitus, type II (5) Malig Neopl Kidney (6) Malignant Ac Liver Nos (7) Phlegmon (8) Renal & Ureteral Dis Nos (9) Sleep apnea Surgical Problems: (1) History of cholecystectomy (2) History of hysterectomy Family History Diabetes mellitus Heart disease Social History Smoking Status: Unknown if Ever Smoked Drug Use: none Marital Status: single Housing Status: snf Occupation Status: unemployed Allergies Coded Allergies: Camphor (Verified Allergy, Mild, RASH, 04/12/09) Eucalyptus Oil (Verified Allergy, Mild, RASH, 04/12/09) Latex1 -Allergic Contact Dermititis (Verified Allergy, Mild, RASH, 08/04/13 ) Menthol (Verified Allergy, Mild, RASH, 04/12/09) Adhesives (Verified Allergy, Unknown, CONTACT DERMATITIS, 03/06/16) Uncoded Allergies: VICKS (Allergy, Unknown, RASH, 03/06/16) Home Medications Scheduled Aspirin (Aspir-Low), 81 MG PO QAM Budesonide (Budesonide), 1 VIAL NEB QAM Docusate Sodium (Colace), 200 MG PO QAM Fentanyl (Fentanyl), 100 MCG TD CQ72HR Furosemide (Lasix), 120 MG PO DAILY Glimepiride (Glimepiride), 4 MG PO BID Insulin Glargine (Lantus Solostar), 15 UNITS SC QPM Ipratropium-Albuterol (Combivent Respimat), 1 PUFFS INH QID Ipratropium-Albuterol (Duoneb), 1 TREATMENT INH Q4H Lorazepam (Ativan), 0.5 MG PO QAM Lorazepam (Ativan), 1.5 MG PO HS Pantoprazole (Protonix), 40 MG PO DAILY Polyethylene Glycol-Propylene (Systane), 1 DROPS OPB BID Ranitidine Hcl (Zantac), 150 MG PO QPM Ropinirole (Requip), 0.5 MG PO HS Saline (Reasnor), 2 SPRY CARLI TID Simvastatin (Zocor), 40 MG PO HS Travoprost (Travatan Z), 1 DROPS OPB HS Scheduled PRN Acetaminophen (Tylenol), 1,000 MG PO Q8 PRN for Mild Pain Dextromethorphan-Guaifenesin (Robafen Dm), 10 ML PO Q6 PRN for Cough Oxycodone/Acetaminophen 5MG/325MG (Percocet 5MG/325MG), 2 TABLET PO Q6H PRN for Severe Pain Current Inpatient Medications Current Inpatient Medications Medications (Trade) Dose Ordered Sig/Ramin Route Start Time Stop Time Status Last Admin Dose Admin Sodium Chloride 1,000 ml @ 200 mls/hr Q5H ONCE IV 06/05/17 07:58 06/05/17 12:57 Review of Systems Unable to obtain secondary to patient condition Physical Exam Date Time Temp Pulse Resp B/P (MAP) Pulse Ox O2 Delivery O2 Flow Rate FiO2 06/05/17 09:08 106 20 98/54 93 Nasal Cannula 3.0 06/05/17 08:53 114 23 87/37 97 Nasal Cannula 4.0 06/05/17 08:40 110 20 115/76 97 Nasal Cannula 4.0 06/05/17 08:35 117 26 69/45 99 Nasal Cannula 4.0 06/05/17 08:11 102 26 115/47 97 Nasal Cannula 4.0 06/05/17 08:00 93 06/05/17 07:50 34.0 104 20 111/80 96 Nasal Cannula 4.0 General: Pale, appears older than stated age. Skin: Warm, dry, Head: Atraumatic Ears, nose, mouth and throat: airway patent Cardiovascular: Normal peripheral perfusion Respiratory: Shallow respirations Gastrointestinal: Non distended Musculoskeletal: No deformity Neuro: Glascow Coma Scale: Eyes: 2 pain, Verbal 3 nonsensical, Motor 5 localizes , Total GCS 10 Laboratory Results Last 24 Hours Test 06/05/17 08:05 06/05/17 08:15 06/05/17 08:16 06/05/17 08:17 Urine Color DK YELLOW Urine Appearance TURBID Urine pH 5.0 Urine Specific Energy 1.024 Urine Protein 2+ Urine Glucose (UA) NEG Urine Ketones NEG Urine Occult Blood 1+ Urine Nitrite NEG Urine Bilirubin NEG Urine Urobilinogen NEG Urine Leukocyte Esterase TRACE Urine WBC (Auto) >30 /hpf Urine RBC (Auto) 5-10 /hpf Urine Hyaline Casts (Auto) 0 /lpf Urine Epithelial Cells (Auto) >30 /lpf Urine Bacteria (Auto) 3+ Urine Pathogenic Casts 0-3 GRANULAR CASTS /lpf Urine Opiates Screen POS Urine Methadone, Qualitative NEG Urine Barbiturates NEG Urine Phencyclidine (PCP) Level NEG Ur Amphetamine/Methamphetamine NEG MDMA (Ecstasy) Screen NEG Urine Benzodiazepines Screen NEG Urine Cocaine Metabolite NEG Urine Marijuana (THC) NEG Venous Blood pH 7.00 Venous Blood Partial Pressure CO2 195 mmHg Venous Blood Partial Pressure O2 47 mmHg Venous Blood HCO3 47 mmol/L Venous Blood Oxygen Saturation 73.7 % Venous Blood Base Excess 9.9 mEq/L White Blood Count 9.47 K/uL Red Blood Count 3.84 M/uL Hemoglobin 11.5 g/dL Hematocrit 39.2 % Mean Corpuscular Volume 102.1 fL Mean Corpuscular Hemoglobin 29.9 pg Mean Corpuscular Hemoglobin Concent 29.3 g/dl Platelet Count 211 K/uL Mean Platelet Volume 10.2 fL Neutrophils (%) (Auto) 82.0 % Lymphocytes (%) (Auto) 9.9 % Monocytes (%) (Auto) 7.3 % Eosinophils (%) (Auto) 0.1 % Basophils (%) (Auto) 0.1 % Neutrophils # (Auto) 7.76 K/uL Lymphocytes # (Auto) 0.94 K/uL Monocytes # (Auto) 0.69 K/uL Eosinophils # (Auto) 0.01 K/uL Basophils # (Auto) 0.01 K/uL RDW Standard Deviation 46.6 fL RDW Coefficient of Variation 12.6 % Immature Granulocyte % (Auto) 0.6 % Immature Granulocyte # (Auto) 0.06 K/uL Prothrombin Time 10.0 SECONDS Prothromb Time International Ratio 1.0 Activated Partial Thromboplast Time 28.9 SECONDS Partial Thromboplastin Ratio 1.1 Sodium Level 133 mmol/L Potassium Level 4.6 mmol/L Chloride Level 85 mmol/L Carbon Dioxide Level 49 mmol/L Anion Gap -1.5 mmol/L Blood Urea Nitrogen 26 mg/dl Creatinine 1.38 mg/dl Est Creatinine Clear Calc Drug Dose 55.3 ml/min Estimated GFR () 47.0 Estimated GFR (Non- 40.6 BUN/Creatinine Ratio 18.9 Random Glucose 344 mg/dl Calcium Level 9.0 mg/dl Total Bilirubin 0.2 mg/dl Direct Bilirubin < 0.1 mg/dl Aspartate Amino Transf (AST/SGOT) 31 U/L Alanine Aminotransferase (ALT/SGPT) 28 U/L Alkaline Phosphatase 91 U/L Total Creatine Kinase 49 U/L Creatine Kinase MB 3.7 ng/ml Creatine Kinase MB Ratio 7.6 Total Protein 8.3 gm/dl Albumin 3.1 gm/dl Lipase 110 U/L Salicylates Level < 1.7 mg/dl Acetaminophen Level < 2 ug/ml Bedside Lactic Acid Venous 0.76 mmol/L Diagnostic Results I have reviewed the x-ray as well as the radiology report and concur with the report. Assessment & Plan Reason Critically Ill: Hypercarbic respiratory failure PLAN: Neuro: Acute encephalopathy -Likely secondary to hypercarbic respiratory failure -Considerations given to acute urinary tract infection Resp: Severe COPD -Patient wishes to not be intubated Hypercarbic respiratory failure -Pain medication as needed for comfort measures CV: Hypotension -Patient likely in active dying process will proceed with palliative care Fluids/Renal: Hyponatremia ID: Bacteriuria -Started Zosyn in the emergency department -And shared medical decision making with patient's daughters they are not going to treat active infection. GI/Nutrition: Patient may eat or drink as tolerated Heme: Anemia Endocrine: Hyperglycemia Vascular access: Peripheral IVs Musculoskeletal: Recent avulsion fracture of fibula. -Considerations given to possible DVT secondary to recent trauma however will proceed with comfort measures and not actively treat Code Status: DNR/DNI; comfort measures only Discussed with hospitalist and emergency department physician. Patient critically ill however, would likely benefit from inpatient hospice at this time. I have personally spent 35 minutes of critical care time in the direct management of this patient. This is a life/limb threatening event. This includes time spent evaluating patient, direct bedside care, chart review, placing orders, interpretation of diagnostic studies, discussion with consultants, patient, and/or family members regarding treatment decisions, as well as other required patient management activities. This time is exclusive of all separately billable procedures, and teaching time and separate from and in addition to any other critical care service time.
[2017-06-05 09:33] VITALS: O2SAT 90
[2017-06-05 09:40] VITALS: O2SAT 90; BMI 43.1
[2017-06-05] MEDS ORDERED: FENTANYL 25 MCG/HR TDSY TD SCH (11:00)
[2017-06-05] MEDS ORDERED: SCOPOLAMINE 1.5 MG TDSY TD SCH (11:00)
[2017-06-05 13:56] VITALS: BP 98/65; PULSE 101; O2SAT 91
[2017-06-05] MEDS: CHECK FENTANYL PATCH PLACEMENT SCH ×2 (15:33→23:24)
[2017-06-05] MEDS: CHECK SCOPOLAMINE PATCH PLACEMENT SCH ×2 (15:34→23:24)
[2017-06-05] MEDS: MoRPHine SULFATE 2 MG/ML CARP IV PRN ×3 (17:16→23:24)
[2017-06-06] MEDS: MoRPHine SULFATE 2 MG/ML CARP IV PRN ×2 (07:40→10:52)
[2017-06-06] MEDS: CHECK FENTANYL PATCH PLACEMENT SCH (07:41)
[2017-06-06] MEDS: CHECK SCOPOLAMINE PATCH PLACEMENT SCH (07:41)
--- NOTE | 2017-06-06 15:24 | History and Physical ---
History & Physical Date & Time of Service: June 05, 2017 at 9:00 Chief Complaint: Hypercapnic Respiratory Failure Primary Care Physician: Drake Wyman History of Present Illness Late entry for history and physical exam. Patient came to hospital with altered mental status. Patient was found to be in severe repisratory failure with PH of 7.00 and C02 of over 100. When admission was called by ER, critical care attendee had already spoke with family who at the time agreed to forego treatment and have patient be admitted with comfort care. Past Medical/Surgical History Medical Problems: (1) Calculus Of Ureter (2) Chronic Kidney Disease, Stage Iii (Moderate) (3) COPD (chronic obstructive pulmonary disease) (4) COPD exacerbation (5) Diabetes mellitus, type II (6) Hypoxia (7) Malig Neopl Kidney (8) Malignant Ac Liver Nos (9) Phlegmon (10) Pneumonia (11) Renal & Ureteral Dis Nos (12) Respiratory acidosis (13) Respiratory distress (14) Sleep apnea Surgical Problems: (1) History of cholecystectomy (2) History of hysterectomy Family History Diabetes mellitus Heart disease Father had stomach cancer Social History Smoking Status: Unknown if Ever Smoked Drug Use: none Marital Status: single Occupational Status: unemployed Immunizations History of Influenza Vaccine: Unknown History of Tetanus Vaccine?: Unknown Tetanus Immunization Date: Feb 07, 2005 History of Pneumococcal: Unknown History of Hepatitis B Vaccine: Unknown Hepatitis Immunization Date: Feb 07, 2005 Allergies Coded Allergies: Camphor (Verified Allergy, Mild, RASH, 04/12/09) Eucalyptus Oil (Verified Allergy, Mild, RASH, 04/12/09) Latex1 -Allergic Contact Dermititis (Verified Allergy, Mild, RASH, 08/04/13 ) Menthol (Verified Allergy, Mild, RASH, 04/12/09) Adhesives (Verified Allergy, Unknown, CONTACT DERMATITIS, 03/06/16) Uncoded Allergies: VICKS (Allergy, Unknown, RASH, 03/06/16) Home Medications Scheduled Aspirin (Aspir-Low), 81 MG PO QAM Budesonide (Budesonide), 1 VIAL NEB QAM Docusate Sodium (Colace), 200 MG PO QAM Fentanyl (Fentanyl), 100 MCG TD CQ72HR Furosemide (Lasix), 120 MG PO DAILY Glimepiride (Glimepiride), 4 MG PO BID Insulin Glargine (Lantus Solostar), 15 UNITS SC QPM Ipratropium-Albuterol (Combivent Respimat), 1 PUFFS INH QID Ipratropium-Albuterol (Duoneb), 1 TREATMENT INH Q4H Lorazepam (Ativan), 0.5 MG PO QAM Lorazepam (Ativan), 1.5 MG PO HS Pantoprazole (Protonix), 40 MG PO DAILY Polyethylene Glycol-Propylene (Systane), 1 DROPS OPB BID Ranitidine Hcl (Zantac), 150 MG PO QPM Ropinirole (Requip), 0.5 MG PO HS Saline (Edison), 2 SPRY CARLI TID Simvastatin (Zocor), 40 MG PO HS Travoprost (Travatan Z), 1 DROPS OPB HS Scheduled PRN Acetaminophen (Tylenol), 1,000 MG PO Q8 PRN for Mild Pain Dextromethorphan-Guaifenesin (Robafen Dm), 10 ML PO Q6 PRN for Cough Oxycodone/Acetaminophen 5MG/325MG (Percocet 5MG/325MG), 2 TABLET PO Q6H PRN for Severe Pain Review of Systems Unable to obtain review of systems given that patient is terminally ill. Physical Exam Patient appears older than stated age. Head: normocephalic, atraumatic Neck: supple Respiratory/Chest: + pertinent finding (shallow breath) Cardiovascular: + pertinent finding (tachycardic) Abdomen/GI: + pertinent finding (globus) Back: normal inspection Extremities/Musculoskelatal: normal inspection Skin: no rash Lymphatic: no adenopathy Impression Assessment and Plan 61 yo female with severe COPD 1) Hypercarbic respiratory failure Patient is critically ill. discussed with family. Family understands severity of disease. They do not want to pursue any invasive tests will admit under comfort measures. 2)Acute encephalopathy secondary to problem 1 3)hypotensive patient is actively in the process of dying 4) bacteriuria -Started Zosyn in the emergency department -will not treat this any further as patient will be comfort measures. 5)Recent avulsion fracture of fibula. -will continue with comfort measures. Code Status: DNR/DNI; comfort measures only Advanced Directives Existing Living Will: Yes Existing Power of [employer] Consultant: Yes Resuscitation Status VTE Prophylaxis Will order VTE Prophylaxis: No Reason for no VTE drug order: Refusal of treatmnt by pt Reason no Mechanical VTE Order: Refusal of treatment by pt
--- NOTE | 2017-06-06 15:26 | Death Summary ---
Summary of Admission Date Jun 05, 2017 at 09:33 Date & Time of Jun 06, 2017. Hospital Course pATIENT AT 13:05
[2017-06-08] MEDS ORDERED: FENTANYL PATCH REMOVE & WASTE SCH (11:00)
== END 2017-06-06 16:13 | disposition expired | DRG 951 ==
LOC: EDUNIT# 07:48 → C.EDA 07:50 → C.MSN 09:33 → ENRESERV 09:59
PROVIDERS: ADMIT Internal Medicine Sports Medicine; ATTEND Internal Medicine Sports Medicine
DX: Z51.5 Encounter for palliative care (principal); J96.02 Acute respiratory failure with hypercapnia; C22.9 Malignant neoplasm of liver, not specified as primary or secondary; R78.81 Bacteremia; G93.40 Encephalopathy, unspecified; N39.0 Urinary tract infection, site not specified; J44.9 Chronic obstructive pulmonary disease, unspecified; S82.409D Unspecified fracture of shaft of unspecified fibula, subsequent encounter for closed fracture with routine healing; N18.9 Chronic kidney disease, unspecified; E11.65 Type 2 diabetes mellitus with hyperglycemia; Z85.528 Personal history of other malignant neoplasm of kidney; Z79.82 Long term (current) use of aspirin; Z79.4 Long term (current) use of insulin; Z88.8 Allergy status to other drugs, medicaments and biological substances; Z91.040 Latex allergy status; R68.0 Hypothermia, not associated with low environmental temperature; X58.XXXD Exposure to other specified factors, subsequent encounter; Z66 Do not resuscitate